=== PATIENT | female | born 1960 | race Caucasian/White ===

== ENCOUNTER 2020-11-04 14:42 | Emergency (ER) | payer OTHER ==
[~2020-11-04] VITALS: Ht 157.5 cm; Wt 131.0 kg
[2020-11-04] MEDS ORDERED: IPRATROPIUM BROMIDE (0.02%) 0.5MG/2.5ML NEB HHN STA (16:02)
[2020-11-04] MEDS ORDERED: ALBUTEROL (0.083%) 2.5MG/3ML NEB HHN STA (16:02)
[2020-11-04] MEDS ORDERED: PREDNISONE 20MG TABLET PO STA (16:13)
[2020-11-04] MEDS ORDERED: P50 MT (16:48)
[2020-11-04] MEDS ORDERED: ALBU6.7H9 INH (16:48)
[2020-11-04 17:01] VITALS: BP 151/80
== END 2020-11-04 17:03 | disposition home or self-care (01) ==
LOC: ER 14:42
DX: J45.901 Unspecified asthma with (acute) exacerbation (principal); R03.0 Elevated blood-pressure reading, without diagnosis of hypertension
CPT/HCPCS: 94640; 99283; J7512; Z7610